=== PATIENT | female | born 1975 ===

== ENCOUNTER 2017-06-24 00:15 | Emergency (ER) | payer MEDICAID ==
[2017-06-24 00:26] VITALS: RESP 20
[2017-06-24 02:23] VITALS: BP 135/74; PULSE 90; TEMP 99.6; O2SAT 98
--- NOTE | 2017-06-24 02:45 | C.PDOC ---
History Of Present Illness 41 y/o female presents to the Emergency Department via ambulance for complaints of body aches, sore throat, and fever, since yesterday. Associated with some painful swallowing. Patient has been taking Tylenol with no relief. She denies any cough, congestion, or vomiting. Time Seen by Provider: 06/24/17 00:28 Chief Complaint (Nursing): Flu-like Symptoms History Per: Patient History/Exam Limitations: None Onset/Duration Of Symptoms: Days (x2) Current Symptoms Are (Timing): Still Present Past Medical History Reviewed: Historical Data, Nursing Documentation, Vital Signs Vital Signs: Last Vital Signs Temp 99.6 F 06/24/17 02:22 Pulse 90 06/24/17 02:22 Resp 20 06/24/17 02:22 BP 135/74 06/24/17 02:22 Pulse Ox 98 06/24/17 05:42 - Medical History PMH: No Chronic Diseases Surgical History: Tonsillectomy Family History: States: No Known Family Hx - Social History Hx Tobacco Use: No Hx Alcohol Use: No Hx Substance Use: No - Immunization History Hx Tetanus Toxoid Vaccination: No Hx Influenza Vaccination: Yes Hx Pneumococcal Vaccination: No Review Of Systems Except As Marked, All Systems Reviewed And Found Negative. Constitutional: Positive for: Fever, Other (body aches) ENT: Positive for: Throat Pain, Other (Pain on swallowing). Negative for: Nose Congestion Respiratory: Negative for: Cough, Shortness of Breath Gastrointestinal: Negative for: Nausea, Vomiting Physical Exam - Physical Exam Appears: Non-toxic, No Acute Distress Skin: Normal Color, Warm, Dry Head: Atraumatic, Normacephalic Eye(s): bilateral: Normal Inspection, PERRL, EOMI Ear(s): Bilateral: Normal Nose: Normal Tongue: Normal Appearing Lips: Normal Appearing Throat: No Mass (or abscess), Other (Moderate hyperemia of the hypopharynx with exudates) Neck: Normal ROM, Supple, No Other (swelling or neck mass) Lymphatic: Adenopathy (submandibular lymphadenopathy, (+) tender to palpation) Cardiovascular: Rhythm Regular, No Murmur Respiratory: Normal Breath Sounds, No Accessory Muscle Use, No Rhonchi, No Wheezing Gastrointestinal/Abdominal: Soft, No Tenderness, No Distention, No Guarding Extremity: Bilateral: Atraumatic, Normal Color And Temperature Neurological/Psych: Oriented x3, Normal Speech ED Course And Treatment O2 Sat by Pulse Oximetry: 98 (RA) Pulse Ox Interpretation: Normal Progress Note: Patient given Motrin PO, penicillin Po and viscous Lidocaine PO. Tolerating PO in the ER. Patient reports improvemnt, vitals stable for discharge home. Return precautions discussed Disposition Counseled Patient/Family Regarding: Diagnosis, Need For Followup, Rx Given - Disposition Referrals: Nathan Hoyos DO [Staff Provider] - Disposition: HOME/ ROUTINE Disposition Time: 02:43 Condition: STABLE Additional Instructions: Increase PO fluids Take meds as directed Use CHLORASEPTIC SPRAY for throat pain Return to ER if worse Prescriptions: Ibuprofen [Motrin Tab] 800 mg PO QID #20 tab Penicillin VK [Penicillin VK Tab] 1,000 mg PO BID #20 tab Instructions: Sore Throat, Adult (DC) Forms: [facility] (Danish), Work Excuse - POA Present On Arrival: None - Clinical Impression Clinical Impression: Pharyngitis - PA / ACCT EXEC / Resident Statement / has reviewed & agrees with the documentation as recorded. - Scribe Statement The provider has reviewed the documentation as recorded by the Scribe (Juana Yanes) All medical record entries made by the Scribe were at my direction and personally dictated by me. I have reviewed the chart and agree that the record accurately reflects my personal performance of the history, physical exam, medical decision making, and the department course for this patient. I have also personally directed, reviewed, and agree with the discharge instructions and disposition.
== END 2017-06-24 02:59 | disposition home or self-care (01) ==
LOC: C.ER 00:15
DX: J02.9 Acute pharyngitis, unspecified (principal)